=== PATIENT | female | born 1995 | race Two or more races ===

== ENCOUNTER 2017-01-21 16:03 | Emergency (ER) | payer OTHER ==
[2017-01-21 16:09] VITALS: BP 130/80
--- NOTE | 2017-01-21 16:38 | ER Document Report ---
HPI - HPI Patient complains to provider of: Vaginal bleeding Onset: This morning Onset/Duration: Gradual Quality of pain: Cramping Severity: Mild Pain Level: 2 Associated Symptoms: Other - Vaginal bleeding Exacerbated by: Denies Relieved by: Denies Similar symptoms previously: No Recently seen / treated by doctor: No Notes: Patient is a 21-year-old female who presents with vaginal bleeding that is been occurring for almost a week. She describes the bleeding as light, spotting. Today, patient passed some tissue from her vagina which she thought was a miscarriage. Patient has an implantable contraceptive device in her left arm which is placed about a month ago. She reports very mild pelvic cramping. No vaginal discharge. No other symptoms or complaints. - REPRODUCTIVE Reproductive: DENIES: : - DERM Skin Color: Normal Past Medical History - General Information source: Patient - Social History Smoking Status: Never Smoker Family History: Reviewed & Not Pertinent Patient has suicidal ideation: No Patient has homicidal ideation: No Renal/ Medical History: Denies: Hx Peritoneal Dialysis Vertical Provider Document - CONSTITUTIONAL Agree With Documented VS: Yes Exam Limitations: No Limitations General Appearance: WD/WN, No Apparent Distress - INFECTION CONTROL TRAVEL OUTSIDE OF THE [place] IN LAST 30 DAYS: No - HEENT HEENT: Atraumatic, Normocephalic - NECK Neck: Normal Inspection - RESPIRATORY Respiratory: Breath Sounds Normal O2 Sat by Pulse Oximetry: 100 - CARDIOVASCULAR Cardiovascular: Regular Rate, Regular Rhythm - GI/ABDOMEN Gastrointestinal: Abdomen Soft, Abdomen Non-Tender. negative: Abdominal Guarding, Abdominal Rebound - BACK Back: Normal Inspection - MUSCULOSKELETAL/EXTREMETIES Musculoskeletal/Extremeties: MAEW, FROM, Non-Tender - NEURO Level of Consciousness: Awake, Alert Motor/Sensory: No Motor Deficit, No Sensory Deficit - DERM Integumentary: Warm, Dry, No Rash Course - Re-evaluation Re-evalutation: 01/21/17 17:17 Urine hCG is negative. Results discussed with patient and family. Recommend follow-up with the OB doctor who placed her implant. - Vital Signs Vital signs: Temp Pulse Resp BP Pulse Ox 98.5 F 68 18 130/80 H 100 01/21/17 16:05 01/21/17 16:05 01/21/17 16:05 01/21/17 16:05 01/21/17 16:05 Discharge - Discharge Clinical Impression: Dysfunctional uterine bleeding Disposition: HOME, SELF-CARE Instructions: Vaginal Bleeding ([facility]) Additional Instructions: Follow-up with your [facility] doctor in the morning. Return to the emergency department if worse or for any other problems.
[2017-01-21 17:08] LABS: APPEARANCE,URINE CLEAR; BILIRUBIN,URINE NEGATIVE (NEGATIVE); GLUCOSE, URINE NEGATIVE (NEGATIVE); KETONES,URINE NEGATIVE (NEGATIVE); LEUKOCYTE ESTERASE,URINE SMALL (NEGATIVE); NITRITE,URINE NEGATIVE (NEGATIVE); PROTEIN,URINE NEGATIVE (NEGATIVE); UROBILINOGEN,URINE NEGATIVE mg/dL (<2.0)
== END 2017-01-21 20:49 | disposition home or self-care (01) ==
LOC: ER 16:03
DX: N93.8 Other specified abnormal uterine and vaginal bleeding (principal)
CPT/HCPCS: 81001; 81025; 99284

== ENCOUNTER 2017-09-05 18:44 | Emergency (ER) | payer OTHER ==
[2017-09-05 18:54] VITALS: BP 118/62
--- NOTE | 2017-09-05 19:49 | ER Document Report ---
ED Skin Rash/Insect Bite/Abscs - General Chief Complaint: Skin Problem Stated Complaint: POSSIBLE SCABIES Time Seen by Provider: 09/05/17 19:07 Mode of Arrival: Ambulatory Information source: Patient Notes: 22-year-old female presents to ED concern of scabies. Her daughter was diagnosed with scabies yesterday and she is showing some signs of rash that is very scattered no growth at this time. Patient states that her daughter was seen by her primary care doctor 2 days ago and treated with permetherine for the scabies. TRAVEL OUTSIDE OF THE [place] IN LAST 30 DAYS: No - HPI Patient complains to provider of: Skin rash/lesion Onset: Yesterday Onset/Duration: Gradual Quality of pain: No pain Severity: None Pain Level: Denies Skin Character: Rash Quality of rash: Itchy Identify cause: Yes - She states is from the scabies that her daughter was diagnosed with Exacerbated by: Denies Relieved by: Denies Similar symptoms previously: No Recently seen / treated by doctor: No - Related Data Allergies/Adverse Reactions: No Known Allergies Allergy (Verified 09/05/17 18:45) Past Medical History - General Information source: Patient - Social History Smoking Status: Never Smoker Chew tobacco use (# tins/day): No Frequency of alcohol use: Occasional Drug Abuse: None Occupation: Active duty Lives with: Family Family History: DM Patient has suicidal ideation: No Patient has homicidal ideation: No - Past Medical History Cardiac Medical History: Reports: None Pulmonary Medical History: Reports: None EENT Medical History: Reports: None Neurological Medical History: Reports: None Endocrine Medical History: Reports: None Renal/ Medical History: Reports: None Malignancy Medical History: Reports: None GI Medical History: Reports: None Musculoskeltal Medical History: Reports Hx Musculoskeletal Trauma - Fractured nose Skin Medical History: Reports None Psychiatric Medical History: Reports: None Traumatic Medical History: Reports: None Infectious Medical History: Reports: None Past Surgical History: Reports: Hx Appendectomy, Other - Extra nipple removed - Immunizations Immunizations up to date: Yes Hx Diphtheria, Pertussis, Tetanus Vaccination: Yes Review of Systems - Review of Systems Constitutional: No symptoms reported EENT: No symptoms reported Cardiovascular: No symptoms reported Respiratory: No symptoms reported Gastrointestinal: No symptoms reported Genitourinary: No symptoms reported Female Genitourinary: No symptoms reported Musculoskeletal: No symptoms reported Skin: Rash Hematologic/Lymphatic: No symptoms reported Neurological/Psychological: No symptoms reported -: Yes All other systems reviewed and negative Physical Exam - Vital signs Vitals: Temp Pulse Resp BP Pulse Ox 98.1 F 65 14 118/62 98 09/05/17 18:52 09/05/17 18:52 09/05/17 18:52 09/05/17 18:52 09/05/17 18:52 Interpretation: Normal - General General appearance: Appears well, Alert - HEENT Head: Normocephalic, Atraumatic Eyes: Normal Pupils: PERRL - Respiratory Respiratory status: No respiratory distress Chest status: Nontender Breath sounds: Normal Chest palpation: Normal - Cardiovascular Rhythm: Regular Heart sounds: Normal auscultation Murmur: No - Abdominal Inspection: Normal Distension: No distension Bowel sounds: Normal Tenderness: Nontender Organomegaly: No organomegaly - Back Back: Normal, Nontender - Extremities General upper extremity: Normal inspection, Nontender, Normal color, Normal ROM , Normal temperature General lower extremity: Normal inspection, Nontender, Normal color, Normal ROM , Normal temperature, Normal weight bearing. No: Marlene's sign - Neurological Neuro grossly intact: Yes Cognition: Normal Orientation: AAOx4 Kw[place] Coma Scale Eye Opening: Spontaneous [place] Coma Scale Verbal: Oriented [place] Coma Scale Motor: Obeys Commands [place] Coma Scale Total: 15 Speech: Normal Motor strength normal: LUE, RUE, LLE, RLE Sensory: Normal - Psychological Associated symptoms: Normal affect, Normal mood - Skin Skin Temperature: Warm Skin Moisture: Dry Skin Color: Normal Skin irregularity: Rash - Very scattered very small rash no burrows noted patient's daughter diagnosed with scabies this rash does not look like scabies yet. Character of irregularity: Fine Course - Re-evaluation Re-evalutation: 09/05/17 21:43 This young lady was seen today for a rash. Her daughter who was diagnosed with scabies 2 days ago and treated. The patient's rash just started yesterday there is no burrows noted is very scattered fine rash. Patient states that the [id number] who lives with them has had the rash like her daughter's since she moved in and is been living there over a month. Will prescribe permetherine and instructions given for treatment of the house, linens and use of permetherine cream for treatment of scabies. Patient is able to verbalize understanding and agreement with treatment plan. - Vital Signs Vital signs: Temp Pulse Resp BP Pulse Ox 98.1 F 65 14 118/62 98 09/05/17 18:52 09/05/17 18:52 09/05/17 18:52 09/05/17 18:52 09/05/17 18:52 Discharge - Discharge Clinical Impression: Rash and nonspecific skin eruption, daughter has scabies Condition: Stable Disposition: HOME, SELF-CARE Additional Instructions: Scabies Your exam suggests the presence of scabies, which are microscopic parasites of the skin. These mites frances through the skin, causing severe itching. The mite can be spread to other persons by skin contact. All clothing, towels, and bedding should be washed in very hot water, set aside for a week, then washed again. You should apply scabies-killing lotion from the neck down, then wash it off after 12 hours. You may need medication for itching, as the itch persists for many days after the mites have been killed. All family members and close personal contacts should be examined. Repeat treatment may be necessary if the infestation is not eliminated with a single treatment. Call the doctor if you develop increasing swelling and redness, red streaks , tender lumps, fever, or drainage from a skin sore. Diphenhydramine The use of diphenhydramine (Benadryl) has been recommended to control allergic symptoms. The 25 mg strength is available over- the-counter, as well as the elixir. This antihistamine is used for many symptoms. It's useful for itching, watering eyes and nose, allergic swelling, hives, and insect stings. The medication can be repeated four times daily. Age Elixir (12.5 mg/tsp) 25 mg pill 1 yr 1/4 tsp 2-3 yr 1/2 tsp 4-8 yr 1 tsp 9-14 yr 2 tsp one tab adult 1-2 tabs Antihistamines may cause drowsiness, especially with the first dose. Do not operate machinery or drive while under the effects of the medication. Do not combine the medication with alcohol, or with any other medication without talking to your doctor. FOLLOW-UP CARE: If you have been referred to a physician for follow-up care, call the physician s office for an appointment as you were instructed or within the next two days. If you experience worsening or a significant change in your symptoms, notify the physician immediately or return to the Emergency Department at any time for re-evaluation. Prescriptions: Permethrin [Elimite] 60 gm TP ONCE PRN #60 cream.gm. PRN Reason:
== END 2017-09-05 20:41 | disposition home or self-care (01) ==
LOC: ER 18:44
DX: R21 Rash and other nonspecific skin eruption (principal); Z20.7 Contact with and (suspected) exposure to pediculosis, acariasis and other infestations
CPT/HCPCS: 99282